=== PATIENT | male | born 1995 | race Caucasian/White ===

== ENCOUNTER 2019-06-10 13:13 | Emergency (ER) | payer BC ==
[~2019-06-10] VITALS: Ht 180.3 cm; Wt 108.9 kg
[2019-06-10] MEDS ORDERED: ESCI10TA PO (13:24)
--- NOTE | 2019-06-10 13:24 | NUR ---
Dr. erwin joseph to examine patient.
[2019-06-10] MEDS ORDERED: ONDANSETRON 4 MG/2 ML VIAL IV ONE (13:30)
[2019-06-10] MEDS ORDERED: IV NORMAL SALINE 1000 ML BAG IV ONE (13:30)
[2019-06-10] MEDS ORDERED: ONDANSETRON 4 MG/2 ML VIAL ONE (13:32)
[2019-06-10 14:13] VITALS: BP 151/76
== END 2019-06-10 14:14 | disposition home or self-care (01) ==
LOC: ER 13:15 → EDBD 13:15 → ER 14:14
DX: R11.2 Nausea with vomiting, unspecified (principal); F32.9 Major depressive disorder, single episode, unspecified; Z79.899 Other long term (current) drug therapy
CPT/HCPCS: 96361; 96374; 99283; J2405; A4663; J7030